=== PATIENT | female | born 1975 | race African-American/Black ===

== ENCOUNTER 2017-04-06 18:34 | Emergency (ER) | payer MEDICAID, OTHER ==
[~2017-04-06] VITALS: Ht 170.2 cm; Wt 82.0 kg
[~2017-04-06 18:34] MED LIST: CALC1TAB17; FOLI-43; IRON; PREN1TAB23
[2017-04-06 18:46] VITALS: BP 142/94
== END 2017-04-06 21:30 | disposition left against medical advice (07) ==
LOC: ER 18:59
DX: F32.9 Major depressive disorder, single episode, unspecified (principal); Z53.21 Procedure and treatment not carried out due to patient leaving prior to being seen by health care provider

== ENCOUNTER 2020-03-21 02:38 | Inpatient (IN) | payer MEDICAID ==
[~2020-03-21] VITALS: Ht 167.6 cm; Wt 59.0 kg
[2020-03-21] MEDS ORDERED: LEVETIRACETAM 500MG PREMIX 100 ML IV ONE (04:30)
[2020-03-21] MEDS ORDERED: LORAZEPAM 2MG/ML CPJ IV SCH (05:00)
[2020-03-21 05:15] LABS: CHLORIDE 93 mEq/L (98-107)
[2020-03-21 05:18] LABS: BASOPHILS % 0.6 % (0.0-2.0); EOSINOPHILS % 0.9 % (0.0-5.0); ETHANOL BLOOD < 10 mg/dL; HEMATOCRIT. 31.6 % (36.0-48.0); HEMOGLOBIN. 9.8 g/dL (12.0-16.0); LYMPHOCYTES % 28.6 % (20.0-50.0); MEAN CORPUSCULAR HEMOGLOBIN 26.9 pg (28.0-32.0); MEAN CORPUSCULAR VOLUME 86.9 fL (81.0-99.0); MEAN PLATELET VOLUME 10.3 fl (7.4-10.4); NEUTROPHILS % 58.9 % (40.0-76.0); PLATELET 156 x1000/uL (130-400); RED BLOOD CELL COUNT 3.64 mill/uL (4.2-5.4); RED CELL DISTRIBUTION WIDTH 27.7 % (11.6-14.6)
[2020-03-21] MEDS ORDERED: LORAZEPAM 2MG/ML CPJ IV ONE (05:30)
[2020-03-21 05:32] LABS: HCG SCREEN NEGATIVE
[2020-03-21 05:46] LABS: PLATELET ESTIMATE NORMAL
[2020-03-21] MEDS ORDERED: LORAZEPAM 2MG/ML CPJ IV PRN (08:45)
[2020-03-21] MEDS: THIAMINE HCL 100MG TABLET PO SCH (10:00)
[2020-03-21] MEDS: LEVETIRACETAM 500MG TABLET PO SCH ×2 (10:00→22:10)
[2020-03-21] MEDS: CHLORDIAZEPOXIDE 25MG CAPSULE PO SCH ×2 (14:00→22:50)
[2020-03-21] MEDS ORDERED: FOLIC ACID 1 MG, THIAMINE HCL 100 MG, MVI, ADULT NO.1 10 ML in DEXTROSE 5% WATER 1,000 ML IV ONE ×4 (17:00)
[2020-03-22] VITALS (7 sets, daily range): BP systolic 110–119; BP diastolic 67–81
[2020-03-22] MEDS: CHLORDIAZEPOXIDE 25MG CAPSULE PO SCH (06:43)
[2020-03-22] MEDS: LEVETIRACETAM 500MG TABLET PO SCH (10:05)
[2020-03-22] MEDS: THIAMINE HCL 100MG TABLET PO SCH (10:05)
[2020-03-22] MEDS ORDERED: KEPP500 PO (12:04)
[2020-03-22] MEDS ORDERED: THIA100T72 PO (12:04)
== END 2020-03-22 14:32 | disposition home or self-care (01) | DRG 53 ==
LOC: ER 02:38 → MICUSO 05:37 → 5WST 23:35
PROVIDERS: ADMIT Internal Medicine; ATTEND Internal Medicine
DX: G40.509 Epileptic seizures related to external causes, not intractable, without status epilepticus (principal); F10.139 Alcohol abuse with withdrawal, unspecified; F17.210 Nicotine dependence, cigarettes, uncomplicated; F10.10 Alcohol abuse, uncomplicated; Y90.9 Presence of alcohol in blood, level not specified; D64.9 Anemia, unspecified; E87.8 Other disorders of electrolyte and fluid balance, not elsewhere classified; Z71.6 Tobacco abuse counseling; Z88.8 Allergy status to other drugs, medicaments and biological substances; Z71.41 Alcohol abuse counseling and surveillance of alcoholic
CPT/HCPCS: 36415; 80048; 80320; 82962; 83036; 84703; 85025; 93005; 96365; 99285; J1953; J2060; J3411; J3490; J7070; G0480

== ENCOUNTER 2021-05-24 14:28 | Emergency (ER) | payer MEDICAID, OTHER ==
[~2021-05-24] VITALS: Ht 160 cm; Wt 64.0 kg
[~2021-05-24 14:28] MED LIST changes: +KEPP500 PO; +THIA100T72 PO
[2021-05-24 15:00] VITALS: BP 130/89
[2021-05-24] MEDS ORDERED: SODIUM CHLORIDE 0.9% 1,000 ML IV ONE (16:00)
[2021-05-24 16:21] LABS: BASOPHILS % 0.5 % (0.0-2.0); EOSINOPHILS % 0.8 % (0.0-5.0); HEMOGLOBIN. 9.4 g/dL (12.0-16.0); MEAN CORPUSCULAR HEMOGLOBIN 28.3 pg (28.0-32.0); MEAN PLATELET VOLUME 11.5 fl (7.4-10.4); MONOCYTES % 12.1 % (2.0-8.0); NEUTROPHILS % 53.6 % (40.0-76.0); PLATELET 95 x1000/uL (130-400); RED BLOOD CELL COUNT 3.33 mill/uL (4.2-5.4); RED CELL DISTRIBUTION WIDTH 23.3 % (11.6-14.6)
[2021-05-24 16:31] LABS: CHLORIDE 95 mEq/L (98-107)
[2021-05-24 16:35] LABS: ETHANOL BLOOD < 10 mg/dL
[2021-05-24 16:53] LABS: PLATELET ESTIMATE DECREASED
[2021-05-24 17:11] LABS: CLARITY URINE CLEAR (CLEAR); COLOR URINE DARK YELLOW (YELLOW); KETONES URINE TRACE (NEGATIVE); LEUKOCYTE ESTERASE URINE TRACE (NEGATIVE); NITRITE URINE NEGATIVE (NEGATIVE); OCCULT BLOOD URINE NEGATIVE (NEGATIVE); PH URINE >=9.0 (4.5-8.0); PROTEIN URINE TRACE (NEGATIVE); SPECIFIC GRAVITY URINE 1.016 (1.005-1.030)
[2021-05-24 17:35] LABS: *AMPHETAMINES SCREEN URINE NEGATIVE (NEGATIVE)
[2021-05-24 17:36] LABS: *BARBITURATES SCREEN URINE NEGATIVE (NEGATIVE); *BENZODIAZEPINES SCREEN URINE NEGATIVE (NEGATIVE); *COCAINE SCREEN URINE NEGATIVE (NEGATIVE); METHADONE URINE SCREEN NEGATIVE (NEGATIVE); OPIATES URINE SCREEN NEGATIVE (NEGATIVE); PHENCYCLIDINE URINE SCREEN NEGATIVE (NEGATIVE)
[2021-05-24 17:38] LABS: CANNABINOID URINE SCREEN PRESUMTIVE POSITIVE (NEGATIVE)
== END 2021-05-24 18:25 | disposition home or self-care (01) ==
LOC: ER 14:28
DX: G40.909 Epilepsy, unspecified, not intractable, without status epilepticus (principal); I10 Essential (primary) hypertension; F12.10 Cannabis abuse, uncomplicated; Z88.8 Allergy status to other drugs, medicaments and biological substances
CPT/HCPCS: 36415; 70450; 71045; 80053; 80305; 80320; 81003; 85025; 96360; 99285; J7030; Z7610; G0480

== ENCOUNTER 2021-08-09 22:27 | Emergency (ER) | payer MEDICAID, OTHER ==
[~2021-08-09] VITALS: Ht 180.3 cm; Wt 73.0 kg
[2021-08-09] MEDS ORDERED: LEVETIRACETAM 500MG PREMIX 100 ML IV ONE (23:30)
[2021-08-10 00:07] LABS: BASOPHILS % 0.8 % (0.0-2.0); HEMATOCRIT. 33.7 % (36.0-48.0); HEMOGLOBIN. 11.1 g/dL (12.0-16.0); LYMPHOCYTES % 25.9 % (20.0-50.0); MEAN CORPUSCULAR HEMOGLOBIN 30.1 pg (28.0-32.0); MEAN CORPUSCULAR VOLUME 91.6 fL (81.0-99.0); MEAN PLATELET VOLUME 10.7 fl (7.4-10.4); MONOCYTES % 11.6 % (2.0-8.0); NEUTROPHILS % 59.7 % (40.0-76.0); PLATELET 245 x1000/uL (130-400); RED BLOOD CELL COUNT 3.68 mill/uL (4.2-5.4); RED CELL DISTRIBUTION WIDTH 23.1 % (11.6-14.6)
[2021-08-10 00:12] LABS: CHLORIDE 94 mEq/L (98-107)
[2021-08-10] MEDS ORDERED: POTASSIUM CHLORIDE 20MEQ TABLET SR PO NR (01:45)
[2021-08-10] MEDS ORDERED: KEPP500 MT (02:12)
[2021-08-10 02:40] VITALS: BP 146/73
[2021-08-10 04:39] LABS: PLATELET ESTIMATE NORMAL
== END 2021-08-10 02:43 | disposition home or self-care (01) ==
LOC: ER 22:27
DX: R56.9 Unspecified convulsions (principal); E87.6 Hypokalemia; Z79.899 Other long term (current) drug therapy; Z88.5 Allergy status to narcotic agent
CPT/HCPCS: 36415; 80053; 85025; 93005; 96365; 99284; J1953